=== PATIENT | female | born 1970 | race Caucasian/White ===

== ENCOUNTER 2018-11-29 17:16 | Emergency (ER) | payer OTHER ==
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
[2018-11-29] MEDS ORDERED: Ketorolac INJ* 60 MG/2 ML VIAL IM ONE (19:31)
[2018-11-29] MEDS ORDERED: Methocarbamol TAB* 500 MG PO ONE (19:31)
[2018-11-29 19:46] VITALS: BP 140/69
== END 2018-11-29 20:00 | disposition home or self-care (01) ==
LOC: ED 17:16
DX: M54.2 Cervicalgia (principal); V49.40XA Driver injured in collision with unspecified motor vehicles in traffic accident, initial encounter; Y92.410 Unspecified street and highway as the place of occurrence of the external cause; G35 Multiple sclerosis; Z79.899 Other long term (current) drug therapy
CPT/HCPCS: 70450; 72125; 96372; 99283; A9270-GY; J1885